=== PATIENT | male | born 1980 | race Caucasian/White ===

== ENCOUNTER 2017-12-20 21:12 | Emergency (ER) | payer OTHER ==
[2017-12-20 21:29] VITALS: BP 131/80; PULSE 81; TEMP 98.6; BMI 25.0
--- NOTE | 2017-12-20 21:29 | PDOC ---
Rapid Medical Evaluation Time Seen by Provider: 12/20/17 21:27 Medical Evaluation: Allergies Allergy/AdvReac Type Severity Reaction Status Date / Time No Known Allergies Allergy Verified 10/11/13 17:22 12/20/17 21:28 Pt presents for RLQ pain. Hx of kidney stones Exam: NAD, appears comfortable Orders: labs, Urine, IV Pt to proceed to ED for further evaluation Discharge Disposition - Diagnosis Abdominal pain Qualifiers: Abdominal location: right lower quadrant Qualified Code(s): R10.31 - Right lower quadrant pain - Referrals - Patient Instructions - Post Discharge Activity
[2017-12-20 21:57] LABS: BASO % 0.6 % (0-2.0); HEMATOCRIT 46.3 % (35.4-49); HEMOGLOBIN 15.7 GM/dL (11.7-16.9); LYMPH % 37.2 % (8-40); MCH 29.6 pg (25.7-33.7); MCHC 33.8 g/dl (32.0-35.9); MEAN CELL VOLUME 87.5 fl (80-96); MEAN PLT VOLUME 9.3 fl (7.5-11.1); MONO % 11.1 % (3.8-10.2); NEUT % 49.1 % (42.8-82.8); PLATELET COUNT 230 K/MM3 (134-434); RBC 5.29 M/mm3 (4.00-5.60); RDW 13.2 % (11.9-15.9); WHITE BLOOD COUNT 5.8 K/mm3 (4.0-10.0)
[2017-12-20 22:31] LABS: ALBUMIN 4.1 g/dl (3.4-5.0); ALK PHOS 119 U/L (45-117); ANION GAP 7 MMOL/L (8-16); BILIRUBIN,TOTAL 0.6 mg/dL (0.2-1); BLOOD UREA NITROGEN 16 mg/dL (7-18); CALCIUM 9.5 mg/dL (8.5-10.1); CHLORIDE 105 mmol/L (98-107); CO2 29 mmol/L (21-32); GLUCOSE,RANDOM 117 mg/dL (74-106); SGOT/AST 27 U/L (15-37); SGPT/ALT 42 U/L (13-61); SODIUM 140 mmol/L (136-145); TOT PROT 7.6 g/dl (6.4-8.2)
--- NOTE | 2017-12-20 22:43 | PDOC ---
History of Present Illness - General Chief Complaint: Pain, Acute Stated Complaint: PAIN Time Seen by Provider: 12/20/17 21:27 - History of Present Illness Initial Comments: 12/20/17 22:40 CHIEF COMPLAINT: abdominal pain HISTORY OF PRESENT ILLNESS: 37 yo M with hx of kidney stones presents to ED with RLQ pain x 2 days. Patient describes the pain as an intermittent "pinching " pain that became worse after work this morning. He reports feeling "a little dizzy" and "maybe some chills" but denies any fever, nausea, vomiting, or diarrhea. Patient reports having regular bowel movement "like four times today. " No recent travel or sick contacts. PAST MEDICAL HISTORY: Denies past medical history FAMILY HISTORY: Denies SOCIAL HISTORY: Denies tobacco, alcohol, illicit drug use. SURGICAL HISTORY: Denies ALLERGIES: No known drug allergies REVIEW OF SYSTEMS General/Constitutional: Denies fever or chills. Denies weakness, weight change. HEENT: Denies change in vision. Denies ear pain or discharge. Denies sore throat. Cardiovascular: Denies chest pain or shortness of breath. Respiratory: Denies cough, wheezing, or hemoptysis. Gastrointestinal: Pain to RLQ. Denies nausea, vomiting, diarrhea or constipation. Denies rectal bleeding. Genitourinary: Denies dysuria, frequency, or change in urination. Musculoskeletal: Denies joint or muscle swelling or pain. Denies neck or back pain. Skin and breasts: Denies rash or easy bruising. Neurologic: Denies headache, vertigo, loss of consciousness, or loss of sensation. PHYSICAL EXAM General Appearance: Well-appearing, appropriately dressed. No apparent distress , no intoxication. HEENT: EOMI, PERRLA, normal ENT inspection, normal voice, TMs normal, pharynx normal. No conjunctival pallor. No photophobia, scleral icterus. Neck: Supple. Trachea midline. No tenderness, rigidity, carotid bruit, stridor , lymphadenopathy, or thyromegaly. Respiratory/Chest: Lungs CTAB. No shortness of breath, chest tenderness, respiratory distress, accessory muscle use. No crackles, rales, rhonchi, stridor , wheezing, dullness Cardiovascular: RRR. S1, S2. No JVD, murmur, bradycardia, tachycardia. Vascular Pulses: Dorsalis-Pedis (R): 2+, Dorsalis-Pedis (L): 2+ Gastrointestinal/Abdominal: RLQ TTP at McBurney's point. Normal bowel sounds. Abdomen soft, non-distended. No tenderness or rebound tenderness. No organomegaly, pulsatile mass, guarding, hernia, hepatomegaly, splenomegaly. Lymphatic: No adenopathy, tenderness. Musculoskeletal/Extremities: Normal inspection. FROM of all extremities, normal capillary refill. Pelvis Stable. No CVA tenderness. No tenderness to extremities, pedal edema, swelling, erythema or deformity. Integumentary: Appropriate color, dry, warm. No cyanosis, erythema, jaundice or rash Neurologic: [employer] II-XII intact. Fully oriented, alert. Appropriate mood/affect. Motor strength 5/5. No appreciable EOM palsy, facial droop or sensory deficit. Past History - Past Medical History Allergies/Adverse Reactions: Allergies Allergy/AdvReac Type Severity Reaction Status Date / Time No Known Allergies Allergy Verified 12/20/17 21:29 Home Medications: Ambulatory Orders Dicyclomine HCl [Bentyl -] 20 mg PO Q8H PRN #21 tablet 12/21/17 COPD: No Kidney Stones: Yes - Suicide/Smoking/Psychosocial Hx Smoking Status: No Smoking History: Never smoked Number of Cigarettes Smoked Daily: 0 *Physical Exam - Vital Signs Last Vital Signs Temp Pulse Resp BP Pulse Ox 98.6 F 81 18 131/80 98 12/20/17 21:26 12/20/17 21:26 12/20/17 21:26 12/20/17 21:26 12/20/17 21:26 ED Treatment Course - LABORATORY CBC & Chemistry Diagram: 12/20/17 21:36 12/20/17 21:36 - ADDITIONAL ORDERS Additional order review: Laboratory Results 12/20/17 21:36 Sodium 140 Potassium 4.0 Chloride 105 Carbon Dioxide 29 Anion Gap 7 L BUN 16 Creatinine 1.0 Creat Clearance w eGFR > 60 Random Glucose 117 H Calcium 9.5 Total Bilirubin 0.6 AST 27 ALT 42 Alkaline Phosphatase 119 H Total Protein 7.6 Albumin 4.1 12/20/17 21:36 RBC 5.29 MCV 87.5 MCHC 33.8 RDW 13.2 MPV 9.3 Neutrophils % 49.1 Lymphocytes % 37.2 D Monocytes % 11.1 H Eosinophils % 2.0 Basophils % 0.6 Medical Decision Making - Medical Decision Making 12/20/17 22:43 37 yo M with hx of kidney stones presents to ED with RLQ pain x 2 days 12/21/17 02:[address] negative for acute pathology. -Teresa Vizcarra Patient to f/u with GI. *DC/Admit/Observation/Transfer Diagnosis at time of Disposition: Abdominal pain Qualifiers: Abdominal location: right lower quadrant Qualified Code(s): R10.31 - Right lower quadrant pain - Discharge Dispostion Disposition: HOME Condition at time of disposition: Stable Decision to Admit order: No - Prescriptions Prescriptions: Dicyclomine HCl [Bentyl -] 20 mg PO Q8H PRN #21 tablet PRN Reason: abdominal pain - Referrals Referrals: Jose Saavedra MD [Staff Physician] - - Patient Instructions Printed Discharge Instructions: DI for Abdominal Pain-Adult Additional Instructions: Please follow up with gastroenterology if symptoms persist past 2-3 days. If you develop fever, chills, vomiting, diarrhea, rectal bleeding, or any new or worsening symptoms, please return to the ER. - Post Discharge Activity Forms/Work/School Notes: Back to Work
[2017-12-20 22:53] LABS: URINE APPEARANCE CLEAR; URINE BILIRUBIN NEGATIVE (<2.0 mg/dL); URINE COLOR STRAW; URINE GLUCOSE (UA) NEGATIVE (NEGATIVE); URINE KETONE NEGATIVE (NEGATIVE); URINE LEUK ESTERASE NEGATIVE (NEGATIVE); URINE NITRITE NEGATIVE (NEGATIVE); URINE PROTEIN NEGATIVE (NEGATIVE); URINE UROBILINOGEN NEGATIVE mg/dL (0.2-1.0)
[2017-12-21] MEDS ORDERED: MAG HYDROX/AL HYDROX/SIMETH 30 ML UNIT-DOSE CUP PO ONE (01:30)
[2017-12-21] MEDS ORDERED: DICYCLOMINE HCL 20 MG TABLET PO ONE (01:30)
[2017-12-21] MEDS ORDERED: DICYCLOMINE HCL 10 MG CAPSULE ONE (01:46)
[2017-12-21] MEDS ORDERED: MAG HYDROX/AL HYDROX/SIMETH 30 ML UNIT-DOSE CUP ONE (01:47)
== END 2017-12-21 02:21 | disposition home or self-care (01) ==
LOC: JER 21:12
DX: R10.31 Right lower quadrant pain (principal); Z87.442 Personal history of urinary calculi
CPT/HCPCS: 36415; 74177-TC; 80053; 81003; 85025; 87086; 99283-25

== ENCOUNTER 2021-04-10 15:15 | Emergency (ER) | payer OTHER ==
[2021-04-10 15:21] VITALS: TEMP 97; BMI 25.8
[2021-04-10] MEDS ORDERED: SODIUM CHLORIDE 0.9% 500 ML INFUS.BAG IV ONE (15:43)
[2021-04-10] MEDS ORDERED: KETOROLAC TROMETHAMINE 30 MG/1 ML VIAL IVPUSH ONE (15:43)
[2021-04-10] MEDS ORDERED: KETOROLAC TROMETHAMINE 30 MG/1 ML VIAL ONE (16:19)
[2021-04-10 16:29] LABS: BASO % 0.5 % (0-2.0); EOS % 0.3 % (0-4.5); HEMATOCRIT 46.9 % (35.4-49); HEMOGLOBIN 15.7 GM/dL (11.7-16.9); LYMPH % 19.6 % (8-40); MCH 29.6 pg (25.7-33.7); MCHC 33.6 g/dl (32.0-35.9); MEAN CELL VOLUME 88.1 fl (80-96); MEAN PLT VOLUME 8.8 fl (7.5-11.1); MONO % 5.9 % (3.8-10.2); NEUT % 73.7 % (42.8-82.8); PLATELET COUNT 241 10^3/uL (134-434); RBC 5.32 M/mm3 (4.00-5.60); RDW 13.6 % (11.9-15.9); WHITE BLOOD COUNT 6.1 K/mm3 (4.0-10.0)
[2021-04-10 16:41] LABS: BLOOD UREA NITROGEN 13.2 mg/dL (7-18)
[2021-04-10 16:42] LABS: ALBUMIN 4.2 g/dl (3.4-5.0); CALCIUM 9.3 mg/dL (8.5-10.1)
[2021-04-10 16:44] LABS: CREATININE 0.9 mg/dL (0.55-1.3)
[2021-04-10 16:46] LABS: BILIRUBIN,TOTAL 0.9 mg/dL (0.2-1); TOT PROT 7.5 g/dl (6.4-8.2)
[2021-04-10 20:39] VITALS: BP 114/70; PULSE 72
== END 2021-04-10 20:39 | disposition home or self-care (01) ==
LOC: JER 15:15
PROC: 3E033GC Introduction of Other Therapeutic Substance into Peripheral Vein, Percutaneous Approach (ICD-10-PCS; principal; 2021-04-10)
DX: R10.31 Right lower quadrant pain (principal)
CPT/HCPCS: 36415; 74177-TC; 80053; 83690; 85025; 96374; 99285-25; Q9967